=== PATIENT | female | born 1950 | race Caucasian/White ===

== ENCOUNTER 2017-08-30 16:58 | Emergency (ER) | payer OTHER ==
[~2017-08-30] VITALS: Ht 149.9 cm; Wt 104.7 kg
[~2017-08-30 16:58] MED LIST: ADVAIR 500/501 DISK IH; ALBUTEROL SULF8.5 GM IH; AMARYL2 MG PO; ASPIRIN81 M2 PO; BENTYL10 MG PO; CALCIUM CITRAT250 MG PO; CIPRO500 MG PO; CITRACAL PLUS1 EAC1 PO; CITRUS CALCIUM1 EAC1 PO; COMBIVENT RESPIM4 GM IH; COZAAR25 MG PO; DUONEB 2.5-0.5 M3 ML IH; FLEXERIL10 MG PO; FOSAMAX70 MG PO; HUMALOG100 UNIT/2 SC; HYDROCHLOROTH12.5 M3 PO; KLONOPIN0.5 M1 PO; LANTUS 3 M100 UNITS1 SC; LEVAQUIN500 MG PO; LOPRESSOR25 MG PO; LORTAB 5-325 M1 EACH PO; LOSARTAN POTAS100 MG PO; METFORMIN HCL850 MG PO; MICROZIDE12.5 M1 PO; MOBIC7.5 MG PO; NASONEX17 GM BOTH NARES; NITROSTAT0.4 MG SL; PREDNISONE10 MG PO; PROTONIX40 MG PO; ROCALTROL0.25 MCG PO; STOOL SOFTENER100 M1 PO; THEO-24300 MG PO; TIROSINT100 MCG PO; TOPROL XL25 MG PO; TRAMADOL HCL50 MG PO; TYLENOL WITH C1 EACH PO; ULTRAM50 MG PO; VENTOLIN HFA18 GM IH; VITAMIN D32000 UNI1 PO; ZADITOR 0.100 DROP/5 BOTH EYES; ZOCOR40 MG PO; ZYRTEC10 M2 PO
[2017-08-30 17:51] LABS: HEMATOCRIT 38.9 % (36.0-46.0); MCH 28.7 PG (29.0-34.0); MCHC 32.1 G/DL (30.0-36.0); MCV 89.2 FL (83-99); MEAN PLAT.VOLUME 9.9 uM^3 (9.5-12.4); PLATELET COUNT 400 K/uL (156-360); RBC DIS.WIDTH-SD 48.9 % (39-53); RED BLOOD COUNT 4.36 M/uL (3.80-5.20); WHITE BLOOD COUNT 9.3 K/uL (4.1-10.2)
[2017-08-30 18:02] LABS: CHLORIDE 104 mEq/L (99-109); POTASSIUM 3.7 mEq/L (3.7-5.4); SODIUM 142 mEq/L (136-147)
[2017-08-30 18:04] LABS: GLUCOSE 118 mg/dL (70-99)
[2017-08-30 18:06] LABS: ANION GAP 12 MEQ/L (2-14); TOTAL BILIRUBIN 0.3 mg/dL (0.0-1.0)
[2017-08-30 18:08] LABS: ALKALINE PHOSPHATASE 66 IU/L (3-129); GFR ESTIMATE (CALCULATED) 40 mL/min/
[2017-08-30 18:09] LABS: UREA NITROGEN (BUN) 28 mg/dL (9-23)
[2017-08-30 19:51] LABS: ADD MIUA? YES; BILIRUBIN NEGATIVE; BLOOD NEGATIVE; COLOR YELLOW ((YELLOW)); GLUCOSE (STRIP) NEGATIVE; KETONES NEGATIVE; LEUKOCYTES LARGE; NITRITE NEGATIVE; PROTEIN (STRIP) NEGATIVE; UROBILINOGEN 0.2 MG/DL (0.2-1.0)
[2017-08-30 20:06] LABS: BACTERIA RARE /HPF; EPITHELIAL CELLS 2+ /HPF; HYALINE CASTS 0-5 /LPF; MUCUS TRACE /LPF; UCUL ADDED? YES; WHITE BLOOD CELLS 30-40 /HPF (0-5); WHITE BLOOD CELLS CLUMP RARE /HPF (0-5)
[2017-08-30] MEDS ORDERED: CIPRO250 MG PO (21:18)
[2017-08-30 22:13] VITALS: BP 167/76
== END 2017-08-30 22:15 | disposition home or self-care (01) ==
LOC: EME 16:58
DX: N30.90 Cystitis, unspecified without hematuria (principal); D35.01 Benign neoplasm of right adrenal gland; K57.30 Diverticulosis of large intestine without perforation or abscess without bleeding; J44.9 Chronic obstructive pulmonary disease, unspecified; I10 Essential (primary) hypertension; E11.9 Type 2 diabetes mellitus without complications; Z79.84 Long term (current) use of oral hypoglycemic drugs; Z87.891 Personal history of nicotine dependence
CPT/HCPCS: 74176; 80053; 81003; 85027; 87086 GA; 99281; 99284; J7030